=== PATIENT | male | born 1995 | race Two or more races ===

== ENCOUNTER 2016-04-08 00:19 | Emergency (ER) | payer SELFPAY ==
[2016-04-08 00:19] VITALS: BMI 46.0
[2016-04-08 00:35] VITALS: BP 160/79; PULSE 96; TEMP 98.2
--- NOTE | 2016-04-08 00:51 | EDPRACDOC ---
- General Information Chief Complaint: Shoulder Pain Stated Complaint: LT SHOULDER DISLOCATION Time Seen by Provider: 04/08/16 00:49 Information Source: Patient Home Medications: Home Medications No Home Medications 04/08/16 Allergies/Adverse Reactions: Allergies Allergy/AdvReac Type Severity Reaction Status Date / Time No Known Allergies Allergy Verified 04/08/16 00:34 - History of Present Illness Onset: 30 minutes HPI: PT FELT A "POP" AND SHOULDER RELOCATED; HE REFUSES XRAY Location: Reports: Left Circumstances: Reports: None Relevant History: Reports: Shoulder Dislocation Able to Move Shoulder?: Yes Associated Signs & Symptoms: Reports: None ED Past Medical History - History Reviewed Yes Nurses notes reviewed and agree except as marked - Patient Medical History Psychological History: Denies: Depression - Social Medical History Smoking Status: Light tobacco smoker (less than 5/day) EDM Review of Systems - Review of Systems ROS Negative Except as Marked: Yes All systems reviewed and were negative except as marked - Physical Exam Constitutional: No apparent distress Oriented to: Time, Person, Place Last recorded Vital Signs: Last Vital Signs Temp 98.2 F 04/08/16 00:29 Pulse 96 04/08/16 00:29 Resp 20 04/08/16 00:29 BP 160/79 04/08/16 00:29 Pulse Ox 97 04/08/16 00:29 Oxygen Pulse Oxygen Saturation 97 O2 Device Room Air Oxygen Flow Rate Fraction of Inspired Oxygen ( FIO2) ED Shoulder Problem Exam - Musculoskeletal Clavicle: Normal Shoulder: negative: Dislocation, Limited ROM Arm: Normal Distal Function/Circulation: Normal Decision Time to Discharge: 00:50 - Departure Yes I personally saw and evaluated the patient. Disposition: Home Condition: Good Final Diagnosis: LEFT SHOULDER DISCLOCATION, SPONTANEOUS REDUCTION Instructions: RICE Therapy (ED) Education/Counseling Given To: Patient, Family Member Education/Counseling Given Regarding: Diagnosis, Treatment, Prognosis Referrals: None,No Provider [Primary Care Provider] - One Week Alex Romero MD [Staff Physician] - One Week Prescriptions: No Action No Home Medications 0 NA DIR #0 info Additional Instructions: MOTRIN NEEDED
== END 2016-04-08 01:00 | disposition home or self-care (01) ==
LOC: ED 00:19
DX: S43.005A Unspecified dislocation of left shoulder joint, initial encounter (principal); X58.XXXA Exposure to other specified factors, initial encounter; F17.210 Nicotine dependence, cigarettes, uncomplicated
CPT/HCPCS: 99283